=== PATIENT | female | born 1990 | race Caucasian/White ===

== ENCOUNTER 2016-05-20 15:02 | Emergency (ER) | payer OTHER ==
[2016-05-20 15:09] VITALS: TEMP 98.2
[2016-05-20] MEDS ORDERED: SODIUM CHLORIDE 0.9% 1,000 ML IV STA (15:39)
--- NOTE | 2016-05-20 16:15 | ED ---
Abdominal Pain HPI - General Chief Complaint: Abdominal Pain Stated Complaint: lower abdominal pain Time Seen by Provider: 05/20/16 15:33 Source: patient, RN notes reviewed Mode of arrival: ambulatory Limitations: no limitations - History of Present Illness Initial Comments: 25-year-old female presents to the emergency Department chief complaint abdominal pain. Patient states she's had this lower pelvic type abdominal pain for the last week or so. Patient gives herself she moves or touches. Patient states she hasn't had any fever chills that she denies any nausea vomiting change in bowel or bladder habits. Patient states that she was concerned due to the continued pain so she thought that she should be evaluated. Patient denies any cough cold runny nose. Patient states that she is not currently having any other symptoms at this time. Patient denies any recent fever, chills , shortness of breath, chest pain, back pain, nausea vomiting, numbness or tingling, dysuria or hematuria, constipation or diarrhea, headaches or visual changes, or any other current symptoms. - Related Data Previous Rx's Medication Instructions Recorded Ciprofloxacin HCl [Cipro] 500 mg PO Q12HR #14 tablet 05/20/16 Phenazopyridine [Pyridium] 100 mg PO TID #9 tablet 05/20/16 Allergies Allergy/AdvReac Type Severity Reaction Status Date / Time No Known Allergies Allergy Verified 05/20/16 15:41 Review of Systems ROS Statement: Those systems with pertinent positive or pertinent negative responses have been documented in the HPI. ROS Other: All systems not noted in ROS Statement are negative. Past Medical History Past Medical History: No Reported History Additional Past Medical History / Comment(s): blood clotting disorder MTHFR, anticardiolipid antibody syndrome History of Any Multi-Drug Resistant Organisms: None Reported Past Surgical History: No Surgical Hx Reported Past Psychological History: No Psychological Hx Reported Smoking Status: Current every day smoker Past Alcohol Use History: None Reported Past Drug Use History: None Reported General Exam - General Exam Comments Initial Comments: General: The patient is awake and alert, in no distress, and does not appear acutely ill. Eye: Pupils are equal, round and reactive to light, extra-ocular movements are intact; there is normal conjunctiva bilaterally. No signs of icterus. Ears, nose, mouth and throat: There are moist mucous membranes and no oral lesions. Neck: The neck is supple, there is no tenderness. Cardiovascular: There is a regular rate and rhythm. No murmur, rub or gallop is appreciated. Respiratory: Lungs are clear to auscultation, respirations are non-labored, breath sounds are equal. No wheezes, stridor, rales, or rhonchi. Gastrointestinal: Soft, non-distended, minimal tenderness to palpation in the suprapubic area of the abdomen without masses or organomegaly noted. There is no rebound or guarding present. No CVA tenderness. Bowel sounds are unremarkable. Back: There is no tenderness to palpation in the midline. There is no obvious deformity. No rashes noted. Musculoskeletal: Normal ROM, no tenderness, There is no pedal edema. There is no calf tenderness or swelling. Sensation intact. Pulses equal bilaterally 2+. Neurological: CN II-XII intact, There are no obvious motor or sensory deficits. Coordination appears grossly intact. Speech is normal. Skin: Skin is warm and dry and no rashes or lesions are noted. Psychiatric: Cooperative, appropriate mood & affect, normal judgment. Limitations: no limitations Course Vital Signs 05/20/16 15:07 Temperature 98.2 F Pulse Rate 90 Respiratory 20 Rate Blood Pressure 122/76 O2 Sat by Pulse 99 Oximetry Medical Decision Making - Medical Decision Making 25-year-old female presents emergency Department chief complaint abdominal pain. At this time patient's laboratory is reviewed. Patient does appear to have a UTI. At this time we will start the patient on Cipro for home. We discussed return for hours and follow-up. We discussed all patient's and family 's questions. She stated that she understood she is tender in the plan all cushions of answered. She will be discharged home. - Lab Data Result diagrams: 05/20/16 16:00 05/20/16 16:00 Lab Results 05/20/16 05/20/16 05/20/16 Range/Units 16:00 16:00 16:00 WBC 7.5 (3.8-10.6) k/uL RBC 5.42 H (3.80-5.40) m/uL Hgb 13.9 (11.4-16.0) gm/dL Hct 42.8 (34.0-46.0) % MCV 79.0 L (80.0-100.0) fL MCH 25.5 (25.0-35.0) pg MCHC 32.3 (31.0-37.0) g/dL RDW 17.8 H (11.5-15.5) % Plt Count 195 (150-450) k/uL Neutrophils % 33 % Lymphocytes % 53 % Monocytes % 6 % Eosinophils % 1 % Basophils % 1 % Neutrophils # 2.5 (1.3-7.7) k/uL Lymphocytes # 4.0 (1.0-4.8) k/uL Monocytes # 0.5 (0-1.0) k/uL Eosinophils # 0.1 (0-0.7) k/uL Basophils # 0.1 (0-0.2) k/uL Anisocytosis Slight Microcytosis Slight Sodium 143 (137-145) mmol/L Potassium 3.9 (3.5-5.1) mmol/L Chloride 105 (98-107) mmol/L Carbon Dioxide 26 (22-30) mmol/L Anion Gap 12 mmol/L BUN 16 (7-17) mg/dL Creatinine 0.74 (0.52-1.04) mg/dL Est GFR (MDRD) Af Amer >60 (>60 ml/min/1.73 sqM) Est GFR (MDRD) Non-Af >60 (>60 ml/min/1.73 sqM) Glucose 82 (74-99) mg/dL Calcium 9.3 (8.4-10.2) mg/dL Total Bilirubin 0.6 (0.2-1.3) mg/dL AST 37 H (14-36) U/L ALT 71 H (9-52) U/L Alkaline Phosphatase 80 (38-126) U/L Total Protein 7.9 (6.3-8.2) g/dL Albumin 4.4 (3.5-5.0) g/dL Urine Color Urine Appearance (Clear) Urine pH (5.0-8.0) Ur Specific [place] (1.001-1.035) Urine Protein (Negative) Urine Glucose (UA) (Negative) Urine Ketones (Negative) Urine Blood (Negative) Urine Nitrate (Negative) Urine Bilirubin (Negative) Urine Urobilinogen (<2.0) mg/dL Ur Leukocyte Esterase (Negative) Urine RBC (0-5) /hpf Urine WBC (0-5) /hpf Ur Squamous Epith Cells (0-4) /hpf Amorphous Sediment (None) /hpf Urine Bacteria (None) /hpf Urine Mucus (None) /hpf Urine HCG, Qual Not Detected (Not Detectd) 05/20/16 Range/Units 16:00 WBC (3.8-10.6) k/uL RBC (3.80-5.40) m/uL Hgb (11.4-16.0) gm/dL Hct (34.0-46.0) % MCV (80.0-100.0) fL MCH (25.0-35.0) pg MCHC (31.0-37.0) g/dL RDW (11.5-15.5) % Plt Count (150-450) k/uL Neutrophils % % Lymphocytes % % Monocytes % % Eosinophils % % Basophils % % Neutrophils # (1.3-7.7) k/uL Lymphocytes # (1.0-4.8) k/uL Monocytes # (0-1.0) k/uL Eosinophils # (0-0.7) k/uL Basophils # (0-0.2) k/uL Anisocytosis Microcytosis Sodium (137-145) mmol/L Potassium (3.5-5.1) mmol/L Chloride (98-107) mmol/L Carbon Dioxide (22-30) mmol/L Anion Gap mmol/L BUN (7-17) mg/dL Creatinine (0.52-1.04) mg/dL Est GFR (MDRD) Af Amer (>60 ml/min/1.73 sqM) Est GFR (MDRD) Non-Af (>60 ml/min/1.73 sqM) Glucose (74-99) mg/dL Calcium (8.4-10.2) mg/dL Total Bilirubin (0.2-1.3) mg/dL AST (14-36) U/L ALT (9-52) U/L Alkaline Phosphatase (38-126) U/L Total Protein (6.3-8.2) g/dL Albumin (3.5-5.0) g/dL Urine Color Yellow Urine Appearance Cloudy H (Clear) Urine pH 5.5 (5.0-8.0) Ur Specific [place] 1.021 (1.001-1.035) Urine Protein Trace H (Negative) Urine Glucose (UA) Negative (Negative) Urine Ketones Negative (Negative) Urine Blood Negative (Negative) Urine Nitrate Negative (Negative) Urine Bilirubin Negative (Negative) Urine Urobilinogen <2.0 (<2.0) mg/dL Ur Leukocyte Esterase Large H (Negative) Urine RBC 4 (0-5) /hpf Urine WBC 117 H (0-5) /hpf Ur Squamous Epith Cells 27 H (0-4) /hpf Amorphous Sediment Occasional H (None) /hpf Urine Bacteria Few H (None) /hpf Urine Mucus Rare H (None) /hpf Urine HCG, Qual (Not Detectd) - Radiology Data Radiology results: report reviewed, image reviewed Disposition Clinical Impression: UTI (urinary tract infection) Disposition: HOME SELF-CARE Condition: Stable Instructions: Urinary Tract Infection in Women (ED) Additional Instructions: Please use medication as discussed. Please follow up with family doctor if symptoms have not improved over the next two days. Please return to the emergency room if your symptoms increase or worsen or for any other concerns. Prescriptions: Ciprofloxacin HCl [Cipro] 500 mg PO Q12HR #14 tablet Phenazopyridine [Pyridium] 100 mg PO TID #9 tablet Referrals: None,Stated [Primary Care Provider] - 1-2 days Ashley Johnson MD [STAFF PHYSICIAN] - 1-2 days Time of Disposition: 16:53
[2016-05-20 16:19] LABS: Anisocytosis Slight; Aty Lym Flag Slight; Basophils # (A) 0.1 k/uL (0-0.2); Basophils % (A) 1 %; CH 25.7; CHCM 32.7; Eosinophils # (A) 0.1 k/uL (0-0.7); Eosinophils % (A) 1 %; HCT 42.8 % (34.0-46.0); HDW 3.21; HGB 13.9 gm/dL (11.4-16.0); Luc # (Auto) 0.47; Luc % (Auto) 6; Lymphocytes % (A) 53 %; MCH 25.5 pg (25.0-35.0); MCHC 32.3 g/dL (31.0-37.0); Mean Platelet Volume 8.1; Microcytosis Slight; Monocytes # (A) 0.5 k/uL (0-1.0); Monocytes % (A) 6 %; Neutrophils # (A) 2.5 k/uL (1.3-7.7); Neutrophils % (A) 33 %; RBC 5.42 m/uL (3.80-5.40); RDW 17.8 % (11.5-15.5); WBC 7.5 k/uL (3.8-10.6); WBC (Perox) 7.52
[2016-05-20 16:27] LABS: ALT 71 U/L (9-52); AST 37 U/L (14-36); Alkaline Phosphatase 80 U/L (38-126); Anion Gap 12 mmol/L; Blood Urea Nitrogen 16 mg/dL (7-17); Calcium 9.3 mg/dL (8.4-10.2); Carbon Dioxide 26 mmol/L (22-30); Chloride 105 mmol/L (98-107); Glucose 82 mg/dL (74-99); Non-African American GFR(MDRD) >60 (>60 ml/min/1.73 sqM); Potassium 3.9 mmol/L (3.5-5.1); Sodium 143 mmol/L (137-145); Total Bilirubin 0.6 mg/dL (0.2-1.3); Total Protein 7.9 g/dL (6.3-8.2)
[2016-05-20 16:34] LABS: Amorphous Sediment,Urine Occasional /hpf; Appearance,Urine Cloudy (Clear); Bacteria,Urine Few /hpf; Bilirubin,Urine Negative (Negative); Glucose,Urine (UA) Negative (Negative); Ketones,Urine Negative (Negative); Leukocyte Esterase,Urine Large (Negative); Mucus,Urine Rare /hpf; Nitrite,Urine Negative (Negative); PH, Urine 5.5 (5.0-8.0); Protein,Urine Trace (Negative); RBC,Urine 4 /hpf (0-5); Specific Gravity,Urine 1.021 (1.001-1.035); Squamous Epithelial Cell,Urine 27 /hpf (0-4); UA Billing (MACRO vs. MICRO) MICRO; Urobilinogen,Urine <2.0 mg/dL (<2.0); WBC,Urine 117 /hpf (0-5)
--- NOTE | 2016-05-20 16:39 | XR ---
EXAMINATION TYPE: XR abdomen 2V DATE OF EXAM: 05/20/2016 4:35 PM COMPARISON: NONE HISTORY: Pain TECHNIQUE: Single supine KUB image of the abdomen is obtained FINDINGS: Small bowel demonstrates no evidence for dilatation or air fluid levels. Gas and fecal material is seen in non-distended colon. No convincing evidence for pneumoperitoneum. No unusual calcifications. The lung bases are clear. The osseous structures are intact. IMPRESSION: 1. Overall nonobstructive bowel gas pattern.
[2016-05-20 17:09] VITALS: BP 104/67; PULSE 75; RESP 16
== END 2016-05-20 17:28 | disposition home or self-care (01) ==
LOC: EC 15:02
DX: N39.0 Urinary tract infection, site not specified (principal); F17.200 Nicotine dependence, unspecified, uncomplicated
CPT/HCPCS: 36415; 74020; 80053; 81001; 81025; 85025; 96360; 99284

== ENCOUNTER 2016-11-08 11:36 | Emergency (ER) | payer OTHER ==
[2016-11-08 11:43] VITALS: BP 118/71; PULSE 90; RESP 17; TEMP 97.9
--- NOTE | 2016-11-08 11:59 | ED ---
Skin/Abscess/FB HPI - General Chief complaint: Skin/Abscess/Foreign Body Stated complaint: Insect bite rt foot Time Seen by Provider: 11/08/16 11:51 Source: patient Mode of arrival: ambulatory Limitations: no limitations - History of Present Illness Initial comments: 26-year-old Female patient presents to emergency department today for evaluation of an insect bite to top of her left foot. Patient states she was bit 2 days ago. Patient states that she was scratching and it opened and was bleeding. Patient states when she woke today the area was more red and looked infected. Patient states that she is having some pain to the top of the foot as well. Patient denies any fever, chills, headache, neck pain, back pain, abdominal pain, nausea, vomiting, rash, difficulties with urination or bowel movements. Patient is 27 weeks she denies any abdominal cramping, lower back pain, vaginal bleeding or discharge. She also denies any hematuria, dysuria, urinary frequency or urgency. - Related Data Previous Rx's Medication Instructions Recorded Ciprofloxacin HCl [Cipro] 500 mg PO Q12HR #14 tablet 05/20/16 Phenazopyridine [Pyridium] 100 mg PO TID #9 tablet 05/20/16 Cephalexin [Keflex] 500 mg PO Q8HR #30 cap 11/08/16 Allergies Allergy/AdvReac Type Severity Reaction Status Date / Time No Known Allergies Allergy Verified 11/08/16 11:43 Review of Systems ROS Statement: Those systems with pertinent positive or pertinent negative responses have been documented in the HPI. ROS Other: All systems not noted in ROS Statement are negative. Past Medical History Past Medical History: No Reported History Additional Past Medical History / Comment(s): blood clotting disorder MTHFR, anticardiolipid antibody syndrome History of Any Multi-Drug Resistant Organisms: None Reported Past Surgical History: No Surgical Hx Reported Past Psychological History: No Psychological Hx Reported Smoking Status: Current every day smoker Past Alcohol Use History: None Reported Past Drug Use History: None Reported General Exam Limitations: no limitations General appearance: alert, in no apparent distress Eye exam: Present: normal appearance, PERRL, EOMI. Absent: scleral icterus, conjunctival injection, periorbital swelling ENT exam: Present: normal exam, mucous membranes moist Neck exam: Present: normal inspection. Absent: tenderness, meningismus, lymphadenopathy Respiratory exam: Present: normal lung sounds bilaterally. Absent: respiratory distress, wheezes, rales, rhonchi, stridor Cardiovascular Exam: Present: regular rate, normal rhythm, normal heart sounds. Absent: systolic murmur, diastolic murmur, rubs, gallop, clicks Extremities exam: Present: normal inspection, full ROM, normal capillary refill , other (Lesion to the dorsal aspect of the left foot, central scabbed lesion with surrounding erythema. No swelling. Otherwise skin is pink, warm, and dry. Cap refills less than 3 seconds. Full range of motion without limitation or pain.). Absent: tenderness, pedal edema, joint swelling, calf tenderness Neurological exam: Present: alert, oriented X3, CN II-XII intact Psychiatric exam: Present: normal affect, normal mood Skin exam: Present: warm, dry, intact, normal color. Absent: rash Course Vital Signs 11/08/16 11:39 Temperature 97.9 F Pulse Rate 90 Respiratory 17 Rate Blood Pressure 118/71 O2 Sat by Pulse 99 Oximetry Medical Decision Making - Medical Decision Making 26-year-old female patient presented for evaluation of lesion possible insect bite to the dorsal aspect of her left foot. Physical exam did show a centralized lesion with small amount of purulent drainage, with surrounding erythema. Patient will be placed on Keflex and instructed to follow-up with her primary care physician in one to 2 days for recheck. Patient instructed to return immediately for any new, worsening, or concerning symptoms. Patient verbalizes understanding and agreement with this plan. Disposition Clinical Impression: Insect bite, Cellulitis Disposition: HOME SELF-CARE Condition: Good Instructions: Cellulitis (ED) Additional Instructions: Keep area clean and dry. Apply topical antibiotic ointment. Completely antibiotic prescription and full. Return for any new, worsening, or concerning symptoms. Follow up with primary care physician for recheck in 1-2 days. Prescriptions: Cephalexin [Keflex] 500 mg PO Q8HR #30 cap Referrals: None,Stated [Primary Care Provider] - 1-2 days Time of Disposition: 11:59
== END 2016-11-08 12:12 | disposition home or self-care (01) ==
LOC: EC 11:36
DX: O9A.212 Injury, poisoning and certain other consequences of external causes complicating pregnancy, second trimester (principal); S90.862A Insect bite (nonvenomous), left foot, initial encounter; O99.712 Diseases of the skin and subcutaneous tissue complicating pregnancy, second trimester; L03.116 Cellulitis of left lower limb; O99.332 Smoking (tobacco) complicating pregnancy, second trimester; F17.200 Nicotine dependence, unspecified, uncomplicated; Z3A.27 27 weeks gestation of pregnancy; W57.XXXA Bitten or stung by nonvenomous insect and other nonvenomous arthropods, initial encounter
CPT/HCPCS: 99282

== ENCOUNTER 2018-08-22 21:42 | Emergency (ER) | payer OTHER ==
[2018-08-22 21:56] VITALS: RESP 20
--- NOTE | 2018-08-22 22:27 | ED ---
Chest Pain HPI - General Chief Complaint: Chest Pain Stated Complaint: Light headed Time Seen by Provider: 08/22/18 22:00 Source: patient, family Mode of arrival: ambulatory Limitations: no limitations - History of Present Illness Initial Comments: This patient is 28-year-old woman who presents to be evaluated for chest pain that is been going on intermittently today. The patient states that it is currently located in left chest though she states it has been seeming to go from side to side. When it started earlier in the afternoon was on the right side, then went to the left. She states it is aching. She has not noted worsening or relieving factors. She relates that she did recently have seizure, and then was told that when she followed up in relation to that she had an abnormal EKG and they are setting up further neurology and possibly cardiology consultation. The patient denies anginal symptoms, no dyspnea, diaphoresis, nausea or vomiting, lightheadedness or palpitations. MD Complaint: chest pain -: hour(s) Onset: during rest Pain Location: left chest, right chest Pain Radiation: none Severity: moderate Quality: aching Consistency: intermittent Improves With: nothing Worsens With: nothing Treatments Prior to Arrival: none - Related Data Home Medications Medication Instructions Recorded Confirmed No Known Home Medications 08/22/18 08/22/18 Allergies Allergy/AdvReac Type Severity Reaction Status Date / Time No Known Allergies Allergy Verified 08/22/18 22:50 Review of Systems ROS Statement: Those systems with pertinent positive or pertinent negative responses have been documented in the HPI. ROS Other: All systems not noted in ROS Statement are negative. Constitutional: Denies: fever, chills, weakness Respiratory: Denies: cough, dyspnea Cardiovascular: Reports: chest pain. Denies: palpitations, dyspnea on exertion, orthopnea, edema, syncope Gastrointestinal: Denies: abdominal pain, nausea, vomiting Genitourinary: Denies: dysuria, frequency, hematuria, discharge Musculoskeletal: Denies: back pain Skin: Denies: rash Neurological: Denies: headache, weakness, numbness EKG Findings - EKG Results: EKG: interpreted by LEÓN PUGA, sinus rhythm (Rate 82 bpm), normal axis, normal QRS, normal ST/T - MD, Pacemaker, Normal: Normal tracing: normal tracing Past Medical History Past Medical History: Seizure Disorder Additional Past Medical History / Comment(s): gestational anemia, and MTHFR, anticardiolipin antibody History of Any Multi-Drug Resistant Organisms: None Reported Past Surgical History: No Surgical Hx Reported Past Anesthesia/Blood Transfusion Reactions: No Reported Reaction Past Psychological History: No Psychological Hx Reported Smoking Status: Current every day smoker Past Alcohol Use History: Occasional Past Drug Use History: Marijuana - Past Family History Mother Family Medical History: Hypertension General Exam Limitations: no limitations General appearance: alert, in no apparent distress Head exam: Present: atraumatic, normocephalic Eye exam: Present: normal appearance. Absent: scleral icterus, conjunctival injection ENT exam: Present: normal oropharynx Neck exam: Present: normal inspection, full ROM Respiratory exam: Present: normal lung sounds bilaterally. Absent: respiratory distress, wheezes, rales, rhonchi, stridor Cardiovascular Exam: Present: regular rate, normal rhythm, normal heart sounds. Absent: systolic murmur, diastolic murmur, rubs, gallop GI/Abdominal exam: Present: soft. Absent: distended, tenderness, guarding, rebound, rigid, mass Extremities exam: Present: normal inspection, normal capillary refill. Absent: pedal edema, calf tenderness Back exam: Present: normal inspection. Absent: CVA tenderness (R), CVA tenderness (L) Neurological exam: Present: alert Skin exam: Present: warm, dry, intact, normal color. Absent: rash Course Vital Signs 08/22/18 21:52 Temperature 98.6 F Pulse Rate 117 H Respiratory 20 Rate Blood Pressure 152/98 O2 Sat by Pulse 100 Oximetry Chest Pain [facility] Patient is 28-year-old with chest pain going on since afternoon with negative workup. Patient found to have some white cells in urine and further discussion reveals patient not having any symptoms of urinary tract infection. She does not believe that she does currently have infection. Therefore the urine will be sent for culture to guide further treatment, she is declining antibiotics at the moment. Further care and follow-up with the patient to have EEG related to her seizure. Also discussed further follow-up related chest pain. Turn parameters discussed Disposition Clinical Impression: Chest pain Disposition: HOME SELF-CARE Condition: Good Instructions (If sedation given, give patient instructions): Chest Pain (ED) Is patient prescribed a controlled substance at d/c from ED?: No Referrals: Nain Ruelas DO [Primary Care Provider] - 1-2 days
[2018-08-22 22:28] LABS: Basophils % (A) 0 %; Eosinophils # (A) 0.3 k/uL (0-0.7); Eosinophils % (A) 2 %; HCT 42.6 % (34.0-46.0); HGB 14.3 gm/dL (11.4-16.0); Lymphocytes # (A) 4.7 k/uL (1.0-4.8); Lymphocytes % (A) 44 %; MCH 27.6 pg (25.0-35.0); MCHC 33.5 g/dL (31.0-37.0); MCV 82.5 fL (80.0-100.0); Mean Platelet Volume 9.2; Monocytes # (A) 0.7 k/uL (0-1.0); Monocytes % (A) 7 %; Neutrophils # (A) 4.6 k/uL (1.3-7.7); Neutrophils % (A) 44 %; Platelet Count 194 k/uL (150-450); RBC 5.17 m/uL (3.80-5.40); RDW 14.2 % (11.5-15.5); WBC 10.5 k/uL (3.8-10.6)
[2018-08-22 22:35] LABS: ALT 14 U/L (9-52); AST 23 U/L (14-36); Albumin 4.6 g/dL (3.5-5.0); Alkaline Phosphatase 43 U/L (38-126); Amylase 62 U/L (30-110); Anion Gap 9 mmol/L; Blood Urea Nitrogen 16 mg/dL (7-17); Calcium 9.4 mg/dL (8.4-10.2); Carbon Dioxide 23 mmol/L (22-30); Chloride 107 mmol/L (98-107); Glucose 84 mg/dL (74-99); Lipase 64 U/L (23-300); Magnesium 1.7 mg/dL (1.6-2.3); Potassium 4.1 mmol/L (3.5-5.1); Sodium 139 mmol/L (137-145); Total Bilirubin 0.3 mg/dL (0.2-1.3); Total Protein 7.3 g/dL (6.3-8.2)
[2018-08-22 22:47] LABS: D-Dimer <0.17 mg/L FEU (<0.60); Partial Thromboplastin Time 27.2 sec (22.0-30.0); Prothrombin Time 10.3 sec (9.0-12.0)
[2018-08-22 22:53] LABS: Appearance,Urine Cloudy (Clear); Bilirubin,Urine Negative (Negative); Blood,Urine Negative (Negative); Color,Urine Yellow; Glucose,Urine (UA) Negative (Negative); Ketones,Urine Negative (Negative); Leukocyte Esterase,Urine Large (Negative); Mucus,Urine Rare /hpf; Nitrite,Urine Negative (Negative); PH, Urine 5.5 (5.0-8.0); Protein,Urine Trace (Negative); RBC,Urine 7 /hpf (0-5); Specific Gravity,Urine 1.035 (1.001-1.035); Squamous Epithelial Cell,Urine 21 /hpf (0-4); Urobilinogen,Urine <2.0 mg/dL (<2.0); WBC,Urine 33 /hpf (0-5)
--- NOTE | 2018-08-22 23:15 | XR ---
EXAM: XR Chest, 2 Views CLINICAL HISTORY: Chest Pain TECHNIQUE: Frontal and lateral views of the chest. COMPARISON: No relevant prior studies available. FINDINGS: Lungs: Unremarkable. No consolidation. Pleural space: Unremarkable. No pneumothorax. Heart: Unremarkable. No cardiomegaly. Mediastinum: Unremarkable. Bones/joints: Unremarkable. IMPRESSION: Normal chest x-rays.
[2018-08-22] MEDS ORDERED: KETOROLAC 30 MG/ML 1 ML VIAL IVP STA (23:24)
[2018-08-22] MEDS ORDERED: MAG HYDROX/AL HYDROX/SIMETH 30 ML, HYOSCYAMINE ELIXIR 10 ML, CIMETIDINE HCL 300 MG, LID... PO STA ×4 (23:24)
[2018-08-23 00:16] VITALS: BP 140/72; PULSE 70; TEMP 98.5
== END 2018-08-23 00:16 | disposition home or self-care (01) ==
LOC: EC 21:42
DX: R07.9 Chest pain, unspecified (principal); R42 Dizziness and giddiness; F17.200 Nicotine dependence, unspecified, uncomplicated
CPT/HCPCS: 36415; 93005; 85379; 80053; 82150; 83690; 83735; 84484; 85025; 85610; 85730; 81001; 81025; 87086; 71046; 99285; 96374; J1885

== ENCOUNTER → 2018-08-27 | Outpatient (CLI) | payer OTHER ==
--- NOTE | 2018-08-28 13:27 | EEG ---
ELECTROENCEPHALOGRAM REPORT PROCEDURE DATE: 08/27/2018 ELECTROENCEPHALOGRAM (EEG) REPORT: TECHNIQUE: A routine 18 channel EEG was performed with video using the 10-20 international placement system. HISTORY: New onset seizure about 2 weeks ago. CURRENT MEDICATIONS: Tylenol. STUDY DURATION: 24 minutes. FINDINGS: BACKGROUND: The background activity consisted of 9 to 10 hertz rhythmic waveforms symmetrically distributed over both posterior quadrants. ACTIVATION: Hyperventilation: Not performed. Photic stimulation: Symmetric driving seen. Sleep: Drowsy. ABNORMALITIES: None. IMPRESSION: Normal EEG. No epileptiform activity was present. No seizures were recorded. MMODL / IJN: [id number] / [facility]
== END | disposition home or self-care (01) ==
LOC: NEUROMAIN 10:44
PROVIDERS: ATTEND Family Medicine
DX: Z09 Encounter for follow-up examination after completed treatment for conditions other than malignant neoplasm (principal); Z86.69 Personal history of other diseases of the nervous system and sense organs
CPT/HCPCS: 95816

== ENCOUNTER → 2018-08-28 | Outpatient (CLI) | payer OTHER ==
--- NOTE | 2018-08-28 15:27 | EST ---
EXERCISE STRESS AGE: 28 SEX: F HT: 5'7" WT: 150 PROTOCOL: Jeff Stress Test STAGE: III DURATION OF EXERCISE: 8:00 HEART RATE REST: 85 BLOOD PRESSURE REST: 129/84 MAXIMUM HEART RATE ACHIEVED: 171 MAXIMUM BLOOD PRESSURE: 162/87 85% MPHR: 164 100% MPHR: 193 METS: 9.7 INDICATIONS: Chest pain/syncope. CLINICAL INFORMATION: Pretesting physical examination showed a heart rate of 85, pressure is 129/84 mmHg. Baseline EKG showed sinus mechanism. The patient exercised on the Jeff protocol for a total of 8 minutes and achieved 9.7 METS with max heart rate was 171, which is about 89% of maximum predicted heart rate. Maximum blood pressure was 162/87 mmHg. Clinically, the patient developed chest discomfort in response to exercise. The EKG did not show any significant ST or T-wave abnormalities concerning for ischemia. CONCLUSION: 1. Good exercise tolerance. 2. Chest discomfort in response to exercise. 3. Normal EKG in response to exercise. MMODL / IJN: [id number] /
== END ==
LOC: RADNMMAIN 10:40
PROVIDERS: ATTEND Family Medicine
DX: R55 Syncope and collapse (principal)
CPT/HCPCS: 93017

== ENCOUNTER → 2018-09-01 | Outpatient (CLI) | payer OTHER ==
--- NOTE | 2018-10-06 13:12 | EM ---
EVENT MONITOR REPORT This is a 28-year-old female being evaluated for symptoms of syncope and collapse. 30 day event monitor mostly shows episodes of severe sinus rhythm, sinus tachycardia, occasional APCs and occasional PVCs. No sustained arrhythmias are noted. FINAL IMPRESSION: #1. Sinus rhythm. #2. sinus tachycardia. #3. APCs. #4. PVCs. #5. No sustained cardiac arrhythmias. #6. Patient complained of dizzy and lightheaded correlating with sinus rhythm and sinus tachycardia. MTDD
== END | disposition home or self-care (01) ==
LOC: RADECHMAIN 11:53
PROVIDERS: ATTEND Family Medicine
DX: I49.1 Atrial premature depolarization (principal); I49.3 Ventricular premature depolarization; R00.0 Tachycardia, unspecified
CPT/HCPCS: 93270

== ENCOUNTER → 2018-09-15 | Outpatient (CLI) | payer OTHER ==
--- NOTE | 2018-09-16 01:15 | MR ---
EXAMINATION TYPE: MR brain wo con DATE OF EXAM: 09/15/2018 COMPARISON: None HISTORY: Family hx of aneurysm, seizure Standard multiplanar, multisequence MRI departmental protocol Multiplanar, multisequence images of the brain were acquired. Diffusion weighted imaging was performe d. FINDINGS: Ventricles and sulci appear normal. There is no mass effect nor midline shift. There is no sign of intracranial hemorrhage. Brainstem is intact. Corpus callosum appears normal. Sella turcica a ppears normal. There is no evidence of a posterior fossa mass. There is no evidence of cortical infar ct. There is no evidence of cerebral edema. IMPRESSION: Negative MR scan of the brain.
--- NOTE | 2018-09-16 01:20 | MR ---
EXAMINATION TYPE: MR angio head wo con DATE OF EXAM: 09/15/2018 COMPARISON: None HISTORY: Family hx of aneurysm, seizure TECHNIQUE: Time of flight images focusing on the [place] were performed without contrast. FINDINGS: There is arterial flow demonstrated in the anterior middle and posterior cerebral arteries. There is arterial flow in the vertebrobasilar artery system. Vertebral arteries are fairly symmetric . There is no mass effect. There is no evidence of hemodynamic stenosis. There is no sign of aneurysm o r neovascularity. IMPRESSION: Normal MR angiogram of the brain.
== END | disposition home or self-care (01) ==
LOC: RADMRIMAIN 09:30
PROVIDERS: ATTEND Psychiatry & Neurology Neurology
DX: G40.909 Epilepsy, unspecified, not intractable, without status epilepticus (principal)
CPT/HCPCS: 70544; 70551

== ENCOUNTER 2018-09-22 07:46 | Day surgery (SDC) | payer OTHER ==
[2018-09-18 17:31] VITALS: BMI 23.5
[~2018-09-22 07:46] MED LIST: SODIUM CHLORIDE 0.9% 1,000 ML IV SCH
[2018-09-22 08:29] VITALS: BP 114/70; PULSE 59; RESP 20
[2018-09-22] MEDS ORDERED: SODIUM CHLORIDE 0.9% 500 ML 500 ML IV ONE (09:15)
[2018-09-22] MEDS ORDERED: NITROGLYCERIN SL TABS 0.4 MG TAB SUBLINGUAL ONE ×2 (10:49→11:13)
[2018-09-22] MEDS ORDERED: IV FLUID CONTINUATION 350 ML IV ONE (10:57)
[2018-09-22] MEDS ORDERED: NITROGLYCERIN SL TABS 0.4 MG TAB SUBLINGUAL STA (11:13)
--- NOTE | 2018-09-22 14:14 | P.PCN ---
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 She had episodes of lightheadedness but no bradycardia arrhythmias no hypertension She was laid supine Thereafter sublingual nitroglycerin was administered and after about 5 minutes she was tilted upright once again for another 20 minutes Once again no change in heart rate and blood pressure no syncope noted and she was laid supine at the end of the procedure Impression Normal 12-lead ECG at baseline Normal head up tilt with and without provocation Suggest I discussed the results with the patient and in view of her symptoms I would recommend a diagnostic EP study I will review her 30 day event monitor from the hospital and if needed, if the EP study is unrevealing then repeat 30 day monitoring will be ordered
== END 2018-09-22 12:30 | disposition home or self-care (01) ==
LOC: CATHEP 07:46
PROVIDERS: ATTEND Internal Medicine Clinical Cardiac Electrophysiology
DX: R55 Syncope and collapse (principal); R56.9 Unspecified convulsions; D68.61 Antiphospholipid syndrome; F17.210 Nicotine dependence, cigarettes, uncomplicated
CPT/HCPCS: 93660

== ENCOUNTER 2019-04-09 13:39 | Emergency (ER) | payer OTHER ==
[2019-04-09 14:07] VITALS: RESP 18; TEMP 98.2
[2019-04-09] MEDS ORDERED: ACET/COD 300 MG/30 MG STARTER PACK 6 TAB BTL PO STA (14:43)
[2019-04-09] MEDS ORDERED: KETOROLAC 60 MG/2 ML VIAL IM STA (14:43)
--- NOTE | 2019-04-09 14:43 | ED ---
ENT HPI - General Chief complaint: Dental/Oral Stated complaint: left sided mouth pain Time Seen by Provider: 04/09/19 14:10 Source: patient Mode of arrival: ambulatory Limitations: no limitations - History of Present Illness Initial comments: Patient is a 28-year-old female presenting to emergency Department with complaints of dental pain. Patient states she had a tooth in her upper right mouth approximately 2 weeks ago and was put on penicillin. Patient completed that course of penicillin and states her pain and symptoms returned earlier this week and she went to her PCP who again put her on penicillin. Patient is currently on day 4 of a second round and states her pain is not improving. Patient does not have a follow-up appointment with a dentist as of yet. Patient denies fever, chills, nausea, vomiting. She has no other complaints at this time. Upon arrival to the ER, her vital signs are stable. - Related Data Home Medications Medication Instructions Recorded Confirmed Naproxen Sodium [Aleve] 440 mg PO BID PRN 09/18/18 09/18/18 Previous Rx's Medication Instructions Recorded Clindamycin HCl 300 mg PO Q6HR 10 Days #40 cap 04/09/19 Allergies Allergy/AdvReac Type Severity Reaction Status Date / Time No Known Allergies Allergy Verified 09/18/18 17:12 Review of Systems ROS Statement: Those systems with pertinent positive or pertinent negative responses have been documented in the HPI. ROS Other: All systems not noted in ROS Statement are negative. Past Medical History Past Medical History: Blood Disorder, Seizure Disorder Additional Past Medical History / Comment(s): HX PRE-ECLAMPSIA, gestational anemia, and MTHFR, anticardiolipin antibody. HX LOW HR, BLACKS OUT FOR MANY YEARS. CONVULSION 3 WKS AGO; LIGHTHEADED, SHAKY DAYS AFTER. History of Any Multi-Drug Resistant Organisms: None Reported Past Surgical History: No Surgical Hx Reported Past Anesthesia/Blood Transfusion Reactions: No Reported Reaction Additional Past Anesthesia/Blood Transfusion Reaction / Comment(s): NO PREV ANESTHESIA OR TRANSFUSION Past Psychological History: No Psychological Hx Reported Smoking Status: Current every day smoker - Past Family History Mother Family Medical History: Hypertension Brother(s) Additional Family Medical History / Comment(s): BLOOD CLOT IN FOOT YEARS AGO General Exam - General Exam Comments Initial Comments: GENERAL: Well-appearing, well-nourished and in no acute distress. HEAD: Atraumatic, normocephalic. EYES: Pupils equal round and reactive to light, extraocular movements intact, sclera anicteric, conjunctiva are normal. ENT: TMs normal, nares patent, oropharynx clear without exudates. Moist mucous membranes. Multiple dental. Present. There is no abscess seen. There is some mild erythema of the gumline and upper right and upper left sides. NECK: Normal range of motion, supple without lymphadenopathy or JVD. LUNGS: Breath sounds clear to auscultation bilaterally and equal. No wheezes rales or rhonchi. HEART: Regular rate and rhythm without murmurs, rubs or gallops. EXTREMITIES: Normal range of motion, no pitting or edema. No clubbing or cyanosis. NEUROLOGICAL: Normal speech, normal gait. PSYCH: Normal mood, normal affect. SKIN: Warm, Dry, normal turgor, no rashes or lesions noted. Limitations: no limitations Course Vital Signs 04/09/19 04/09/19 14:05 15:20 Temperature 98.2 F Pulse Rate 88 78 Respiratory 18 18 Rate Blood Pressure 130/89 126/79 O2 Sat by Pulse 98 98 Oximetry Medical Decision Making - Medical Decision Making Patient is a 28-year-old female presenting with dental pain x 1 week. Vital signs are stable. There is no abscesses. Patient will be switched from penicillin to clindamycin. Patient needs to follow-up with a dentist TR[facility]. She is in agreement with this plan of care. Return parameters were discussed with the patient she verbalized understanding. Disposition Clinical Impression: Dental abscess, Dental caries, Pain, dental Disposition: HOME SELF-CARE Condition: Stable Instructions (If sedation given, give patient instructions): Dental Abscess (ED) Additional Instructions: Please return to the Emergency Department if symptoms worsen or any other concerns. Take antibiotic as prescribed. Follow-up with dentist TRUM[facility]. Prescriptions: Clindamycin HCl 300 mg PO Q6HR 10 Days #40 cap Is patient prescribed a controlled substance at d/c from ED?: No Referrals: Nain Ruelas DO [Primary Care Provider] - 1-2 days
[2019-04-09 15:21] VITALS: BP 126/79; PULSE 78
== END 2019-04-09 15:20 | disposition home or self-care (01) ==
LOC: EC 13:39
DX: K02.9 Dental caries, unspecified (principal); K04.7 Periapical abscess without sinus; F17.200 Nicotine dependence, unspecified, uncomplicated
CPT/HCPCS: 99282; J1885

== ENCOUNTER 2019-05-18 15:57 | Emergency (ER) | payer OTHER ==
[2019-05-18] MEDS ORDERED: guaiFENesin-DM 600/30MG 1 EACH TAB.ER.12H PO STA (17:34)
[2019-05-18] MEDS ORDERED: KETOROLAC 30 MG/ML 1 ML VIAL IM STA (17:34)
[2019-05-18] MEDS ORDERED: OSELTAMIVIR 75 MG CAP PO STA (17:34)
[2019-05-18] MEDS ORDERED: diphenhydrAMINE 50 MG/ML 1 ML VIAL IM STA (17:34)
[2019-05-18] MEDS ORDERED: ACETAMINOPHEN TAB 500 MG TAB PO STA (17:35)
--- NOTE | 2019-05-18 17:37 | ED ---
URI HPI - General Chief Complaint: Upper Respiratory Infection Stated Complaint: Migraine Time Seen by Provider: 05/18/19 17:23 Source: patient Mode of arrival: ambulatory Limitations: no limitations - History of Present Illness Initial Comments: 28-year-old female patient presents to the emergency department today for evaluation of cough, nasal congestion, sore throat. Patient is also reporting headache since yesterday. Patient states that she has been feverish and chilled. States she has been taking ibuprofen and DayQuil without much relief. Patient states that nothing is helping her headache. She is reporting nausea, no vomiting. She states that she is sensitive to light. She denies any dizziness or weakness. Denies any blurred or double vision. Denies any rash. Denies any neck pain or stiffness. Patient denies any recent rash, shortness breath, chest pain, abdominal pain, diarrhea, constipation, back pain, numbness, tingling, hematuria, dysuria, urinary urgency, urinary frequency, headache, visual changes, or any other complaints. She denies any chance of . - Related Data Home Medications Medication Instructions Recorded Confirmed Naproxen Sodium [Aleve] 440 mg PO BID PRN 09/18/18 09/18/18 Previous Rx's Medication Instructions Recorded Clindamycin HCl 300 mg PO Q6HR 10 Days #40 cap 04/09/19 Oseltamivir [Tamiflu] 75 mg PO Q12HR #10 cap 05/18/19 guaiFENesin-DM 600/30MG [Mucinex 2 each PO Q12HR PRN #20 tab.er.12h 05/18/19 Dm] Allergies Allergy/AdvReac Type Severity Reaction Status Date / Time No Known Allergies Allergy Verified 05/18/19 16:07 Review of Systems ROS Statement: Those systems with pertinent positive or pertinent negative responses have been documented in the HPI. ROS Other: All systems not noted in ROS Statement are negative. Past Medical History Past Medical History: Blood Disorder, Seizure Disorder, Syncope Additional Past Medical History / Comment(s): HX PRE-ECLAMPSIA, gestational anemia, and MTHFR, anticardiolipin antibody. HX LOW HR, BLACKS OUT FOR MANY YEARS. CONVULSION 3 WKS AGO; LIGHTHEADED, SHAKY DAYS AFTER.bradycardia History of Any Multi-Drug Resistant Organisms: None Reported Past Surgical History: No Surgical Hx Reported Past Anesthesia/Blood Transfusion Reactions: No Reported Reaction Additional Past Anesthesia/Blood Transfusion Reaction / Comment(s): NO PREV ANESTHESIA OR TRANSFUSION Past Psychological History: No Psychological Hx Reported Smoking Status: Current every day smoker Past Alcohol Use History: Occasional Past Drug Use History: Marijuana - Past Family History Mother Family Medical History: Hypertension Brother(s) Additional Family Medical History / Comment(s): BLOOD CLOT IN FOOT YEARS AGO General Exam Limitations: no limitations General appearance: alert, in no apparent distress, other (This is a well- developed, well-nourished adult female patient in no acute distress. Vital signs upon presentation are temperature 98.8F, pulse 112, respirations 22, blood pressure 119/77, pulse ox 99% on room air.) Eye exam: Present: normal appearance, PERRL, EOMI. Absent: scleral icterus, conjunctival injection, nystagmus, periorbital swelling ENT exam: Present: mucous membranes moist, TM's normal bilaterally. Absent: normal oropharynx (Pharyngeal erythema) Neck exam: Present: normal inspection, full ROM. Absent: tenderness, meningismus, lymphadenopathy Respiratory exam: Present: normal lung sounds bilaterally. Absent: respiratory distress, wheezes, rales, rhonchi, stridor Cardiovascular Exam: Present: normal rhythm, tachycardia, normal heart sounds. Absent: systolic murmur, diastolic murmur, rubs, gallop, clicks GI/Abdominal exam: Present: soft, normal bowel sounds. Absent: distended, tenderness, guarding, rebound, rigid Neurological exam: Present: alert, oriented X3, CN II-XII intact Psychiatric exam: Present: normal affect, normal mood Skin exam: Present: warm, dry, intact, normal color. Absent: rash Course Vital Signs 05/18/19 05/18/19 05/18/19 16:03 18:03 18:04 Temperature 98.8 F 100.3 F H Pulse Rate 112 H Respiratory 22 22 Rate Blood Pressure 119/77 O2 Sat by Pulse 99 Oximetry Medical Decision Making - Medical Decision Making 28-year-old female patient presented to the emergency department today for evaluation of cough, congestion, headache, fever since yesterday. Physical examination is clear equal lung sounds. Vital signs normal abnormalities. She did test positive for influenza A. We will treat with antipyretics, Toradol, start Tamiflu, give Mucinex for symptom relief. She is instructed to follow-up with her primary care physician for recheck in 1-2 days. Return parameters were discussed in detail. She verbalizes understanding and agrees with this plan. - Lab Data Lab Results 05/18/19 Range/Units 16:05 Influenza Type A RNA Detected H (Not Detectd) Influenza Type B (PCR) Not Detected (Not Detectd) Disposition Clinical Impression: Influenza A, Headache Disposition: HOME SELF-CARE Condition: Good Instructions (If sedation given, give patient instructions): Influenza (ED), Acute Headache (ED) Additional Instructions: Increase fluids. Rest. Take medications as directed. Follow-up through primary care physician for recheck in 1-2 days. Return to the emergency department immediately for any new, worsening, or concerning symptoms. Prescriptions: guaiFENesin-DM 600/30MG [Mucinex Dm] 2 each PO Q12HR PRN #20 tab.er.12h PRN Reason: Cough Oseltamivir [Tamiflu] 75 mg PO Q12HR #10 cap Is patient prescribed a controlled substance at d/c from ED?: No Referrals: Nain Ruelas DO [Primary Care Provider] - 1-2 days Time of Disposition: 17:37
[2019-05-18 18:03] VITALS: TEMP 100.3
[2019-05-18 18:29] VITALS: BP 113/70; PULSE 64; RESP 18
== END 2019-05-18 18:20 | disposition home or self-care (01) ==
LOC: EC 15:57
DX: J10.1 Influenza due to other identified influenza virus with other respiratory manifestations (principal); R00.0 Tachycardia, unspecified; R11.0 Nausea; H53.149 Visual discomfort, unspecified; F17.200 Nicotine dependence, unspecified, uncomplicated; Z82.49 Family history of ischemic heart disease and other diseases of the circulatory system
CPT/HCPCS: 87502; 99284; 96372 ×2; J1200; J1885

== ENCOUNTER → 2019-11-09 | Outpatient (CLI) | payer OTHER | END | disposition home or self-care (01) | LOC: LABWHC1 09:35 | PROVIDERS: ATTEND Family Medicine | DX: Z20.828 Contact with and (suspected) exposure to other viral communicable diseases (principal) | CPT/HCPCS: U0003; C9803 ==

== ENCOUNTER → 2020-02-10 | Outpatient (CLI) | payer OTHER | END | disposition home or self-care (01) | LOC: LABWHC1 13:49 | PROVIDERS: ATTEND Nurse Practitioner Family | DX: Z20.828 Contact with and (suspected) exposure to other viral communicable diseases (principal) | CPT/HCPCS: U0003; C9803 ==

== ENCOUNTER 2020-08-12 09:57 | Emergency (ER) | payer OTHER ==
[2020-08-12 10:01] VITALS: BP 134/84; PULSE 95; RESP 20; TEMP 97.2
[2020-08-12] MEDS ORDERED: KETOROLAC 15 MG/ML 1 ML VIAL IM STA (10:52)
[2020-08-12] MEDS ORDERED: ORPHENADRINE 30 MG/ML 2 ML VIAL IM STA (10:52)
--- NOTE | 2020-08-12 10:59 | ED ---
General Adult HPI - General Chief complaint: Neck Pain/Injury Stated complaint: neck/back injury Time Seen by Provider: 08/12/20 10:12 Source: patient, RN notes reviewed Mode of arrival: ambulatory Limitations: no limitations - History of Present Illness Initial comments: 30-year-old female with a past medical history of asthma, seizure disorder, syncope presents to the emergency room for a chief complaint of back pain. Patient reports yesterday she was jumping on a trampoline when she felt the pain in her upper back. Patient got down from a trampoline and states the pain continued. States it is painful to lie flat and turn. Patient feels like it is spasming.Patient has no other complaints at this time including shortness of breath, chest pain, abdominal pain, nausea or vomiting, headache, or visual changes. - Related Data Home Medications Medication Instructions Recorded Confirmed Naproxen Sodium [Aleve] 440 mg PO BID PRN 09/18/18 09/18/18 Previous Rx's Medication Instructions Recorded Clindamycin HCl 300 mg PO Q6HR 10 Days #40 cap 04/09/19 Oseltamivir [Tamiflu] 75 mg PO Q12HR #10 cap 05/18/19 guaiFENesin-DM 600/30MG [Mucinex 2 each PO Q12HR PRN #20 tab.er.12h 05/18/19 Dm] Cyclobenzaprine [Flexeril] 10 mg PO TID #10 tab 08/12/20 Allergies Allergy/AdvReac Type Severity Reaction Status Date / Time No Known Allergies Allergy Verified 08/12/20 10:01 Review of Systems ROS Statement: Those systems with pertinent positive or pertinent negative responses have been documented in the HPI. ROS Other: All systems not noted in ROS Statement are negative. Past Medical History Past Medical History: Asthma, Blood Disorder, Seizure Disorder, Syncope Additional Past Medical History / Comment(s): HX PRE-ECLAMPSIA, gestational anemia, and MTHFR, anticardiolipin antibody. HX LOW HR, BLACKS OUT FOR MANY YEARS. CONVULSION 3 WKS AGO; LIGHTHEADED, SHAKY DAYS AFTER.bradycardia History of Any Multi-Drug Resistant Organisms: None Reported Past Surgical History: No Surgical Hx Reported Past Anesthesia/Blood Transfusion Reactions: No Reported Reaction Additional Past Anesthesia/Blood Transfusion Reaction / Comment(s): NO PREV ANESTHESIA OR TRANSFUSION Past Psychological History: No Psychological Hx Reported Smoking Status: Current every day smoker Past Alcohol Use History: Occasional Past Drug Use History: Marijuana - Past Family History Mother Family Medical History: Hypertension Brother(s) Additional Family Medical History / Comment(s): BLOOD CLOT IN FOOT YEARS AGO General Exam Limitations: no limitations General appearance: alert, in no apparent distress Head exam: Present: atraumatic Eye exam: Present: normal appearance, PERRL, EOMI. Absent: scleral icterus, conjunctival injection, periorbital swelling ENT exam: Present: normal exam, mucous membranes moist Neck exam: Present: normal inspection. Absent: tenderness (No paraspinal or cervical spine tenderness), meningismus, lymphadenopathy Respiratory exam: Present: normal lung sounds bilaterally. Absent: respiratory distress, wheezes, rales, rhonchi, stridor Cardiovascular Exam: Present: regular rate, normal rhythm, normal heart sounds. Absent: systolic murmur, diastolic murmur, rubs, gallop, clicks GI/Abdominal exam: Present: soft, normal bowel sounds. Absent: distended, tenderness, guarding, rebound, rigid Back exam: Present: paraspinal tenderness (Paraspinal thoracic tenderness.), vertebral tenderness (Patient has thoracic tenderness around T2.) Course Vital Signs 08/12/20 09:59 Temperature 97.2 F L Pulse Rate 95 Respiratory 20 Rate Blood Pressure 134/84 O2 Sat by Pulse 99 Oximetry Medical Decision Making - Medical Decision Making Vitals are stable. Patient is well-appearing. She does have paraspinal tenderness along the thoracic upper back. Mild thoracic spine tenderness. No lower back tenderness. No neck tenderness. X-ray of the thoracic spine shows no acute abnormality. Patient was given Toradol and Norflex. symptoms are consistent with muscle strain and spasm. Patient already has Tylenol 3 at home for pain that she will take. Patient will follow-up with her doctor in one to 2 days. She'll return here for any worsening symptoms. - Lab Data Lab Results 08/12/20 Range/Units 10:51 Urine HCG, Qual Not Detected (Not Detectd) Disposition Clinical Impression: Mechanical back pain Disposition: HOME SELF-CARE Condition: Good Instructions (If sedation given, give patient instructions): Thoracic Back Strain (ED) Additional Instructions: Please take Motrin for pain. If pain is severe take Tylenol 3. Take muscle relaxer as needed but do not take this while driving, working, or operating machinery. Follow up with your doctor. Return to the emergency room for any worsening symptoms. Prescriptions: Cyclobenzaprine [Flexeril] 10 mg PO TID #10 tab Is patient prescribed a controlled substance at d/c from ED?: No Referrals: Nain Ruelas DO [Primary Care Provider] - 1-2 days Time of Disposition: 11:43
--- NOTE | 2020-08-12 11:38 | XR ---
EXAMINATION TYPE: XR thoracic spine complete DATE OF EXAM: 08/12/2020 COMPARISON: NONE HISTORY: Pain TECHNIQUE: 3 views submitted FINDINGS: Alignment is anatomic. There is no compression deformities. Vertebral body height and disc interspa elvia are maintained. Mild hypertrophic changes. Slight curvature of the spine. IMPRESSION: 1. No acute abnormality.
== END 2020-08-12 11:53 | disposition home or self-care (01) ==
LOC: EC 09:57
DX: M54.6 Pain in thoracic spine (principal); G89.11 Acute pain due to trauma; J45.909 Unspecified asthma, uncomplicated; G40.909 Epilepsy, unspecified, not intractable, without status epilepticus; F17.200 Nicotine dependence, unspecified, uncomplicated; F12.90 Cannabis use, unspecified, uncomplicated; Z87.59 Personal history of other complications of pregnancy, childbirth and the puerperium
CPT/HCPCS: 81025; 72072; 99283; 96372 ×2; J2360; J1885

== ENCOUNTER 2021-01-08 22:45 | Emergency (ER) | payer OTHER ==
[2021-01-08 23:36] VITALS: BP 126/88; PULSE 75; RESP 22; TEMP 97.5
--- NOTE | 2021-01-09 01:12 | US ---
EXAMINATION TYPE: US venous doppler duplex UE RT DATE OF EXAM: 01/09/2021 COMPARISON: NONE CLINICAL HISTORY: pain, heaviness, clotting disorder. SIDE PERFORMED: Right Right Arm: Negative for DVT IMPRESSION: Grayscale, color doppler, spectral doppler imaging performed of the deep veins of the upper extremiti es. There is normal flow, compressability and vascular waveforms.
--- NOTE | 2021-01-09 01:23 | ED ---
Upper Extremity HPI - General Chief Complaint: Extremity Injury, Upper Stated Complaint: RT arm numbness Time Seen by Provider: 01/09/21 00:31 Source: patient, RN notes reviewed Mode of arrival: ambulatory Limitations: no limitations - History of Present Illness Initial Comments: Patient is a 30-year-old female presenting to emergency Department with co mplaints of right arm pain that started about an hour or 2 prior to arrival. She denies any injuries or trauma. States she was watching TV and started feeling some pain, achiness down her right extremity. She has history of clotting disorder. Last week she also had episode of pain in her right forearm, the pain seemed to go away on its own. She talked her doctor about this and her doctor wanted her come in for evaluation. She is concerned for blood clot. She denies any fevers or chills, no redness of the arm. She denies any previous injuries. She did take ibuprofen prior to arrival, did help with the pain. No history of blood clots. She denies any shortness of breath or chest pain, no leg pain. She has no further complaints. Her vitals are stable upon arrival. - Related Data Home Medications Medication Instructions Recorded Confirmed Naproxen Sodium [Aleve] 440 mg PO BID PRN 09/18/18 09/18/18 Previous Rx's Medication Instructions Recorded Clindamycin HCl 300 mg PO Q6HR 10 Days #40 cap 04/09/19 Oseltamivir [Tamiflu] 75 mg PO Q12HR #10 cap 05/18/19 guaiFENesin-DM 600/30MG [Mucinex 2 each PO Q12HR PRN #20 tab.er.12h 05/18/19 Dm] Cyclobenzaprine [Flexeril] 10 mg PO TID #10 tab 08/12/20 Allergies Allergy/AdvReac Type Severity Reaction Status Date / Time No Known Allergies Allergy Verified 01/08/21 23:36 Review of Systems ROS Statement: Those systems with pertinent positive or pertinent negative responses have been documented in the HPI. ROS Other: All systems not noted in ROS Statement are negative. Past Medical History Past Medical History: Asthma, Blood Disorder, Seizure Disorder, Syncope Additional Past Medical History / Comment(s): HX PRE-ECLAMPSIA, gestational anemia, and MTHFR, anticardiolipin antibody. HX LOW HR, BLACKS OUT FOR MANY YEARS. CONVULSION 3 WKS AGO; LIGHTHEADED, SHAKY DAYS AFTER.bradycardia History of Any Multi-Drug Resistant Organisms: None Reported Past Surgical History: No Surgical Hx Reported Past Anesthesia/Blood Transfusion Reactions: No Reported Reaction Additional Past Anesthesia/Blood Transfusion Reaction / Comment(s): NO PREV ANESTHESIA OR TRANSFUSION Past Psychological History: ADD/ADHD, Anxiety Smoking Status: Current every day smoker Past Alcohol Use History: Occasional Past Drug Use History: Marijuana - Past Family History Mother Family Medical History: Hypertension Brother(s) Additional Family Medical History / Comment(s): BLOOD CLOT IN FOOT YEARS AGO General Exam - General Exam Comments Initial Comments: GENERAL: Patient is well-developed and well-nourished. Patient is nontoxic and in no acute distress. HEAD: Atraumatic, normocephalic. EYES: Pupils equal round and reactive to light, extraocular movements intact, sclera anicteric, conjunctiva are normal. Eyelids were unremarkable. NECK: Normal range of motion, supple without lymphadenopathy or JVD. LUNGS: Unlabored respirations. Breath sounds clear to auscultation bilaterally and eq ual. No wheezes rales or rhonchi. HEART: Regular rate and rhythm without murmurs, rubs or gallops. ABDOMEN: Soft, nontender, normoactive bowel sounds. No guarding, no rebound. No masses appreciated. MUSCULOSKELETAL: Normal extremities with adequate strength and normal range of motion, no pitting or edema. No clubbing or cyanosis. Mild tenderness to palpation of the right upper trapezius muscle. NEUROLOGICAL: Patient is alert and oriented x 3. Symmetrical smile. Normal speech, normal gait. PSYCH: Normal mood, normal affect. SKIN: Warm, Dry, normal turgor, no rashes or lesions noted. Limitations: no limitations Course Vital Signs 01/08/21 23:31 Temperature 97.5 F L Pulse Rate 75 Respiratory 22 Rate Blood Pressure 126/88 O2 Sat by Pulse 98 Oximetry Medical Decision Making - Medical Decision Making Patient is a 30-year-old female presenting with right arm pain started while she was watching TV today. She has history of clotting disorder, concern for DVT. She has normal pulses, no redness or swelling. No cough or chest pain, no leg pain. No history of DVTs. Ultrasound is negative for acute DVT of the right upper extremity. Discussed findings with the patient. This is most likely muscle tightness. Recommended continue with ibuprofen. She'll follow up with her primary. She is agreeable to this and stable for discharge. Disposition Clinical Impression: Right arm pain Disposition: HOME SELF-CARE Condition: Stable Instructions (If sedation given, give patient instructions): Arm Pain (ED) Additional Instructions: Please return to the Emergency Department if symptoms worsen or any other concerns. Ultrasound is negative for DVT of the right upper extremity. Follow-up with your primary care. Is patient prescribed a controlled substance at d/c from ED?: No Referrals: Nain Ruelas DO [Primary Care Provider] - 1-2 days Time of Disposition: 01:23
== END 2021-01-09 01:32 | disposition home or self-care (01) ==
LOC: EC 22:45
DX: M79.601 Pain in right arm (principal); R20.0 Anesthesia of skin; J45.909 Unspecified asthma, uncomplicated; G40.909 Epilepsy, unspecified, not intractable, without status epilepticus; F41.9 Anxiety disorder, unspecified; F90.9 Attention-deficit hyperactivity disorder, unspecified type; F17.200 Nicotine dependence, unspecified, uncomplicated; F12.90 Cannabis use, unspecified, uncomplicated
CPT/HCPCS: 99284

== ENCOUNTER → 2021-04-23 | Outpatient (CLI) | payer OTHER ==
[2021-04-23 14:41] LABS: Basophils # (A) 0.07 X 10*3/uL (0.00-0.10); Basophils % (A) 0.8 %; Eosinophils # (A) 0.34 X 10*3/uL (0.04-0.35); Eosinophils % (A) 3.8 %; HGB 14.8 g/dL (12.0-15.0); Lymphocytes # (A) 2.28 X 10*3/uL (0.90-5.00); Lymphocytes % (A) 25.2 %; MCHC 32.9 g/dL (32.0-37.0); MCV 91.3 fL (80.0-97.0); Mean Platelet Volume 12.7 fL (9.5-12.2); Monocytes # (A) 0.88 X 10*3/uL (0.20-1.00); Monocytes % (A) 9.7 %; Neutrophils # (A) 5.45 X 10*3/uL (1.80-7.70); Neutrophils % (A) 60.2 %; Platelet Count 177 X 10*3/uL (140-440); RBC 4.93 X 10*6/uL (4.10-5.20); RDW 12.8 % (11.5-14.5); WBC 9.05 X 10*3/uL (4.50-10.00)
== END | disposition home or self-care (01) ==
LOC: LABPAT 09:14
PROVIDERS: ATTEND Obstetrics & Gynecology Obstetrics
DX: Z01.812 Encounter for preprocedural laboratory examination (principal); N93.8 Other specified abnormal uterine and vaginal bleeding
CPT/HCPCS: 36415; 85025

== ENCOUNTER 2021-04-24 09:33 | Day surgery (SDC) | payer OTHER ==
[2021-04-18 11:27] VITALS: BMI 20.3
[~2021-04-24 09:33] MED LIST changes: +ACETAMINOPHEN IV (For NPO) 1,000 MG in EMPTY BAG 1 BAG IVPB PRN; +DEXAMETHASONE SOD PHOSPHATE 4 MG/ML 1 ML VIAL IV ONE; +LACTATED RINGERS 1,000 ML IV SCH; +ONDANSETRON 4 MG/2 ML VIAL IVP ONE; +Pre Op ABX Message 1 EACH MISC MISCELLANE ONE; -SODIUM CHLORIDE 0.9% 1,000 ML IV SCH
--- NOTE | 2021-04-24 09:39 | P.HPOB ---
History of Present Illness H&P Date: 04/24/21 Chief Complaint: Menorrhagia, family status complete This is a 30-year-old 7 para 5025 non patient that states she is done with family planning and desires permanent sterilization. In addition patient has known irregular heavy menstrual cycles. Patient has a history of seizure disorder, anticardiolipin with clotting disorder. Patient has had a ParaGard IUD placed for contraception, menstrual issues have been exacerbated by the IUD. As she is done with childbearing she is requesting endometrial ablation and tubal ligation. Review of Systems Constitutional: Denies chills, Denies fatigue, Denies fever Ears, nose, mouth and throat: Denies headache Cardiovascular: Denies leg edema Respiratory: Denies dyspnea Gastrointestinal: Denies constipation, Denies diarrhea, Denies nausea, Denies vomiting Genitourinary: Denies Past Medical History Past Medical History: Asthma, Blood Disorder, Syncope Additional Past Medical History / Comment(s): Hx Preeclampsia, Gestational Anemia. MTHFR, anticardiolipin antibody syndrome, Vasovagal Syncope with convulsions, last episode 3 yrs ago. History of Any Multi-Drug Resistant Organisms: None Reported Past Surgical History: No Surgical Hx Reported Past Anesthesia/Blood Transfusion Reactions: No Reported Reaction Additional Past Anesthesia/Blood Transfusion Reaction / Comment(s): NO PREVIOUS ANESTHESIA OR TRANSFUSION. Past Psychological History: ADD/ADHD, Anxiety Smoking Status: Current every day smoker Past Alcohol Use History: None Reported, Occasional Additional Past Alcohol Use History / Comment(s): SMOKES 1 PPD, SINCE 2003. No alcohol in 7 months. Past Drug Use History: Marijuana Additional Drug Use History / Comment(s): DAILY USE, AWARE NO USE 24 HRS PRIOR TO PROCEDURE. - Past Family History Mother Family Medical History: Hypertension Brother(s) Additional Family Medical History / Comment(s): BLOOD CLOT IN FOOT. Medications and Allergies Home Medications Medication Instructions Recorded Confirmed Type No Known Home Medications 04/18/21 04/18/21 History Allergies Allergy/AdvReac Type Severity Reaction Status Date / Time No Known Allergies Allergy Verified 04/18/21 11:00 Exam Osteopathic Statement: *. No significant issues noted on an osteopathic structural exam other than those noted in the History and Physical/Consult. 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 Vaginal mucosa is noted to be pink and well rugated, cervix is without lesion, uterus is mobile no adnexal masses are appreciated. Assessment and Plan (1) Family planning Status: Acute Code(s): Z30.09 - ENCOUNTER FOR OT GENERAL CNSL AND ADVICE ON CONTRACEPTION SNOMED Code(s): 135645749 (2) Menorrhagia Status: Acute Code(s): N92.0 - EXCESSIVE AND FREQUENT MENSTRUATION WITH REGULAR CYCLE SNOMED Code(s): 203810510 (3) Metrorrhagia Status: Acute Code(s): N92.1 - EXCESSIVE AND FREQUENT MENSTRUATION WITH IRREGULAR CYCLE SNOMED Code(s): 26450479 Plan: 30-year-old patient that presents for a practical nurse scope tubal ligation with Filshie clips, hysteroscopy, dilation curettage with endometrial ablation. Patient's counselors of surgery all questions are answered. Patient states she is done with childbearing and requests permanent sterilization with tubal ligation. Risks of surgery are reviewed with the patient including but not limited to infection, bleeding, damage to bladder, bowel. she states understanding and wishes to proceed. We will proceed with a practical nurse scope tubal ligation with Filshie clips, hysteroscopy, dilation curettage, endometrial ablation.
[2021-04-24] MEDS ORDERED: LACTATED RINGERS 1,000 ML IV ONE ×2 (10:02→10:56)
[2021-04-24] MEDS ORDERED: MIDAZOLAM 2 MG/2 ML VIAL IVP ONE (10:15)
[2021-04-24] MEDS ORDERED: PROPOFOL 10 MG/ML 20 ML VIAL IV ONE (10:27)
[2021-04-24] MEDS ORDERED: fentaNYL (PF) 50 MCG/ML 2 ML AMP ONE (10:27)
[2021-04-24] MEDS ORDERED: SUCCINYLCHOLINE CHLORIDE 100 MG/5 ML SYR IV ONE (10:27)
[2021-04-24] MEDS ORDERED: MIDAZOLAM 2 MG/2 ML VIAL ONE (10:27)
[2021-04-24] MEDS ORDERED: LIDOCAINE URO-JET JELLY 2% 5 ML KIT URETHRAL ONE (10:46)
[2021-04-24] MEDS ORDERED: BUPIVACAINE (PF) 0.25% 30 ML VIAL SQ ONE (10:58)
--- NOTE | 2021-04-24 11:19 | P.OP ---
Date of Procedure: 04/24/21 Preoperative Diagnosis: undesired fertility, menometrorrhagia Postoperative Diagnosis: same Procedure(s) Performed: Laparoscopic tubal ligation with Filshie clips, hysteroscopy, dilation and curettage, endometrial ablation with Celia Anesthesia: FELICITA Surgeon: Vicky Baugh Estimated Blood Loss (ml): 5 IV fluids (ml): 1,000 Urine output (ml): 50 Pathology: other (Endometrial curettings) Condition: stable Disposition: PACU Indications for Procedure: Family status complete, desires permanent sterilization, irregular heavy menstrual cycles, history of clotting disorder desires endometrial ablation Operative Findings: Enlarged globular uterus approximately 10 cm in length. Normal-appearing ovaries bilaterally Description of Procedure: Patient was taken back to the operating suite where general anesthesia was obtained without difficulty by the anesthesia department. She was then prepped and draped in normal sterile fashion in the dorsal lithotomy position. I Red R iver catheter was used to drain the bladder clear yellow urine. A speculum was placed the cervix was visualized and grasped with single tooth tenaculum. An acorn uterine manipulator was advanced into the cervix as a means to miniplate uterus throughout the procedure. All instruments removed from the patient's vaginal vault at this time. Attention was then turned to the patient' abdomen where in the umbilical fold a small skin incision is made. Through this incision appears needles placed. Once the Veress needle was deemed to be in the appropriate position with a drop of CO2 pressure CO2 insufflation was allowed to occur. 3 L of gas or used to obtain pneumoperitoneum. At this time the 5 mm trocar and sleeve is placed through the skin incision and toward the pneumoperitoneum. The above-noted findings are visualized. In the right lateral abdomen a 8 mm skin incision is made and an 8 mm trocar and sleeve is placed of the incision under direct visualization. The Filshie clip applicator was then used to apply a clip to the right/left fallopian tube. Complete occlusion was appreciated upon placement of the clips. Pictures were taken and all instrument were removed. Skin incisions were closed with 4-0 Vicryl in a subcu fashion. Suture strips and sterile dressings were applied. Attention was then turned the patient's vaginal vault where the acorn uterine macular was removed without difficulty. The endocervical canal was then serially dilated. The hysteroscope was then placed through the cervix and toward the endometrial cavity and intact cavity was appreciated proliferative endometrium was appreciated. A sharp curettage was then performed. The specimen was then sent to pathology for analysis. The Celia was then opened and set to the appropriate measurements for the patient's endometrial cavity length of 6. Once cavity assessment was completed the procedure was operated according to php mysql developer's instruction. One cycle was complete the device was removed without difficulty. The single-tooth tenaculum was taken off of the anterior lip of the cervix, hemostasis was appreciated. All counts were noted to be correct 2. Patient did tolerate procedure well and was taken back to the recovery room awake in stable condition.
[2021-04-24] MEDS ORDERED: MEPERIDINE 50 MG/ML SYRINGE IVP ONE ×2 (11:30→11:38)
[2021-04-24] MEDS: HYDROmorphone 0.5 MG/0.5 ML SYRINGE IVP PRN ×2 (11:46→11:57)
[2021-04-24 12:02] VITALS: RESP 16; TEMP 97
[2021-04-24] MEDS ORDERED: Acetaminophen-Codeine 300-30mg TAB ONE (12:59)
[2021-04-24] MEDS ORDERED: Acetaminophen-Codeine 300-30mg TAB PO ONE (13:01)
[2021-04-24 13:03] VITALS: BP 126/88; PULSE 49
== END 2021-04-24 13:48 | disposition home or self-care (01) ==
LOC: OR 09:33
PROVIDERS: ATTEND Obstetrics & Gynecology Obstetrics
DX: Z30.2 Encounter for sterilization (principal); N92.0 Excessive and frequent menstruation with regular cycle; J45.909 Unspecified asthma, uncomplicated; F90.9 Attention-deficit hyperactivity disorder, unspecified type; F41.9 Anxiety disorder, unspecified; F17.210 Nicotine dependence, cigarettes, uncomplicated; Z82.49 Family history of ischemic heart disease and other diseases of the circulatory system; Z86.2 Personal history of diseases of the blood and blood-forming organs and certain disorders involving the immune mechanism
CPT/HCPCS: 81025; 88305; 58671; 58563; J2250; J1100; J2175; J2405; J3010; J0131; J0330; J2704; J1170

== ENCOUNTER 2023-08-03 09:19 | Emergency (ER) | payer OTHER ==
[2023-08-03 10:14] LABS: Basophils % (A) 1 %; Eosinophils # (A) 0.3 k/uL (0-0.7); Eosinophils % (A) 3 %; HCT 43.1 % (34.0-46.0); HGB 13.8 gm/dL (11.4-16.0); Lymphocytes # (A) 2.2 k/uL (1.0-4.8); Lymphocytes % (A) 29 %; MCH 29.4 pg (25.0-35.0); MCHC 32.1 g/dL (31.0-37.0); MCV 91.7 fL (80.0-100.0); Mean Platelet Volume 9.4; Monocytes # (A) 0.4 k/uL (0-1.0); Monocytes % (A) 6 %; Neutrophils # (A) 4.7 k/uL (1.3-7.7); Neutrophils % (A) 60 %; Platelet Count 194 k/uL (150-450); RBC 4.69 m/uL (3.80-5.40); RDW 12.8 % (11.5-15.5); WBC 7.7 k/uL (3.8-10.6)
[2023-08-03 10:25] LABS: ALT 15 U/L (4-34); AST 17 U/L (14-36); African American GFR (CKD) >90 (>60 ml/min/1.73 sqM); Albumin 3.7 g/dL (3.5-5.0); Alkaline Phosphatase 45 U/L (38-126); Anion Gap 6 mmol/L; Blood Urea Nitrogen 9 mg/dL (7-17); Calcium 8.5 mg/dL (8.4-10.2); Carbon Dioxide 27 mmol/L (22-30); Chloride 106 mmol/L (98-107); Glucose 85 mg/dL (74-99); Magnesium 1.6 mg/dL (1.6-2.3); Non-African American GFR(CKD) >90 (>60 ml/min/1.73 sqM); Potassium 3.8 mmol/L (3.5-5.1); Sodium 139 mmol/L (137-145); Total Bilirubin 0.6 mg/dL (0.2-1.3); Total Protein 6.3 g/dL (6.3-8.2)
[2023-08-03 10:35] LABS: Partial Thromboplastin Time 26.1 sec (22.0-30.0); Prothrombin Time 11.3 sec (10.0-12.5)
--- NOTE | 2023-08-03 10:45 | CT ---
EXAMINATION TYPE: CT chest angio for PE DATE OF EXAM: 08/03/2023 COMPARISON: None HISTORY: pe CT DLP: 295 mGycm Automated exposure control for dose reduction was used. CONTRAST: CT Chest for pulmonary embolism performed with with IV Contrast, patient injected with 70 mL of Isovu e 370. 3-D postprocessing was performed. FINDINGS: LUNGS: The lungs are grossly clear, there is no concerning parenchymal mass or nodule identified. T here is no pleural effusion or pneumothorax seen. The tracheobronchial tree is patent. MEDIASTINUM: There is satisfactory enhancement of the pulmonary artery and its branches, there is no CT evidence for pulmonary embolism. There are no greater than 1 cm hilar or mediastinal lymph nodes. No pericardial effusion is seen. IMPRESSION: 1. No pulmonary embolism. 2. No acute cardiopulmonary disease.
--- NOTE | 2023-08-03 11:04 | ED ---
General Adult HPI - General Chief complaint: Chest Pain Stated complaint: Chest Pain Time Seen by Provider: 08/03/23 09:25 Source: patient, RN notes reviewed, old records reviewed Mode of arrival: ambulatory Limitations: no limitations - History of Present Illness Initial comments: This is a 33-year-old female who presents to the emergency department co mplaining of chest pain when she woke up this morning which is subsided. Patient states it was sharp and it went away after 10 minutes. Patient states she still has pain in her back between her shoulder blades and she did not do anything to herself so she came to the emergency department. Patient has any fever chills or cough. Patient states she does have a clotting disorder but never had any blood clots. Patient also states she has been diagnosed with bradycardia. Patient denies any recent fever or chills. Patient denies any abdominal pain patient has nausea vomiting - Related Data Home Medications Medication Instructions Recorded Confirmed No Known Home Medications 04/18/21 04/18/21 Allergies Allergy/AdvReac Type Severity Reaction Status Date / Time No Known Allergies Allergy Verified 07/01/22 22:37 Review of Systems ROS Statement: Those systems with pertinent positive or pertinent negative responses have been documented in the HPI. ROS Other: All systems not noted in ROS Statement are negative. Past Medical History Past Medical History: Asthma, Blood Disorder, Syncope Additional Past Medical History / Comment(s): Hx Preeclampsia, Gestational Anemia. MTHFR, anticardiolipin antibody syndrome, Vasovagal Syncope with convulsions, last episode 3 yrs ago. History of Any Multi-Drug Resistant Organisms: None Reported Past Surgical History: Tubal Ligation, Uterine Ablation Past Anesthesia/Blood Transfusion Reactions: No Reported Reaction Additional Past Anesthesia/Blood Transfusion Reaction / Comment(s): NO PREVIOUS ANESTHESIA OR TRANSFUSION. Past Psychological History: ADD/ADHD, Anxiety Smoking Status: Current every day smoker Past Alcohol Use History: Occasional Past Drug Use History: Marijuana - Past Family History Mother Family Medical History: Hypertension Brother(s) Additional Family Medical History / Comment(s): BLOOD CLOT IN FOOT. General Exam - General Exam Comments Initial Comments: GENERAL: Patient is well-developed and well-nourished. Patient is nontoxic and well- hydrated and is in mild distress. ENT: Neck is soft and supple. No significant lymphadenopathy is noted. Oropharynx is clear. Moist mucous membranes. Neck has full range of motion without eliciting any pain. EYES: The sclera were anicteric and conjunctiva were pink and moist. Extraocular movements were intact and pupils were equal round and reactive to light. Eyelids were unremarkable. PULMONARY: Unlabored respirations. Good breath sounds bilaterally. No audible rales rhonchi or wheezing was noted. CARDIOVASCULAR: There is a regular rate and rhythm without any murmurs gallops or rubs. ABDOMEN: Soft and nontender with normal bowel sounds. SKIN: Skin is clear with no lesions or rashes and otherwise unremarkable. NEUROLOGIC: Patient is alert and oriented x3. Cranial nerves II through XII are grossly intact. Motor and sensory are also intact. Normal speech, volume and content. Symmetrical smile. MUSCULOSKELETAL: Normal extremities with adequate strength and full range of motion. LYMPHATICS: No significant lymphadenopathy is noted PSYCHIATRIC: Normal psychiatric evaluation. Limitations: no limitations Course Vital Signs 08/03/23 09:19 Temperature 97.8 F Pulse Rate 83 Respiratory 16 Rate Blood Pressure 141/88 O2 Sat by Pulse 98 Oximetry Medical Decision Making - Medical Decision Making EKG is interpreted by nv EKG shows a sinus rhythm at 74 bpm parables 154 QRS is 94 QT interval 370 QTc is 397. Patient's EKG shows no ST segment ovation or depression. Was pt. sent in by a medical professional or institution (, PA, CHECKOUT OPERATOR, urgent care, hospital, or senior living...) When possible be specific @ -No Did you speak to anyone other than the patient for history (EMS, parent, family, police, friend...)? What history was obtained from this source @ -No Did you review nursing and triage notes (agree or disagree)? Why? @ -I reviewed and agree with nursing and triage notes Were old charts reviewed (outside hosp., previous admission, EMS record, old EKG, old radiological studies, urgent care reports/EKG's, senior living records)? Report findings @ -No old charts were reviewed Differential Diagnosis (chest pain, altered mental status, abdominal pain women, abdominal pain men, vaginal bleeding, weakness, fever, dyspnea, syncope, headache, dizziness, GI bleed, back pain, seizure, CVA, palpatations, mental health, musculoskeletal)? @ -Differential Chest Pain: Stable Angina, Unstable Angina, STEMI, NSTEMI Aortic Dissection, Pneumothorax, Musculoskeletal, Esophageal Spasm GERD, Cholecystitis, Pancreatitis, Zoster, this is not meant to be an all-inclusive list. EKG interpreted by me (3pts min.). @ -As above X-rays interpreted by me (1pt min.). @ -None done CT interpreted by me (1pt min.). @ -CT of the chest showed no pulmonary embolism no aortic dissection and no lung abnormalities U/S interpreted by me (1pt. min.). @ -None done What testing was considered but not performed or refused? (CT, X-rays, U/S, labs)? Why? @ -None What meds were considered but not given or refused? Why? @ -None Did you discuss the management of the patient with other professionals (professionals i.e. , PA, CHECKOUT OPERATOR, lab, RT, psych nurse, social services technician, bioinformatician, teacher, motor equipment commanding officer, pillowcase sewer)? Give summary @ -No Was smoking cessation discussed for >3mins.? @ -No Was critical care preformed (if so, how long)? @ -No Were there social determinants of health that impacted care today? How? (Homelessness, low income, unemployed, alcoholism, drug addiction, transportation, low edu. Level, literacy, decrease access to med. care, [facility], rehab)? @ -No Was there de-escalation of care discussed even if they declined (Discuss DNR or withdrawal of care, Hospice)? DNR status @ -No What co-morbidities impacted this encounter? (DM, HTN, Smoking, COPD, CAD, Cancer, CVA, ARF, Chemo, Hep., AIDS, mental health diagnosis, sleep apnea, morbid obesity)? @ -None Was patient admitted / discharged? Hospital course, mention meds given and route, prescriptions, significant lab abnormalities, going to OR and other pertinent info. @ -Patient was sleeping when I went back in the room to give her the results of her tests. Patient's lab work was all normal as was a CT of her chest. Patient is having only minimal back pain at this time and no chest pain. Patient will be discharged home Undiagnosed new problem with uncertain prognosis? @ -No Drug Therapy requiring intensive monitoring for toxicity (Heparin, Nitro, Insulin, Cardizem)? @ -No Were any procedures done? @ -No Diagnosis/symptom? @ -Chest pain Acute, or Chronic, or Acute on Chronic? @ -Acute Uncomplicated (without systemic symptoms) or Complicated (systemic symptoms)? @ -Complicated Side effects of treatment? @ -No Exacerbation, Progression, or Severe Exacerbation? @ -No Poses a threat to life or bodily function? How? (Chest pain, [place], [place], pneumonia, PE, COPD, DKA, ARF, appy, cholecystitis, CVA, Diverticulitis, Homicidal, Suicidal, threat to staff... and all critical care pts) @ -No Diagnosis/symptom? @ -Back pain Acute, or Chronic, or Acute on Chronic? @ -Acute Uncomplicated (without systemic symptoms) or Complicated (systemic symptoms)? @ -Uncomplicated Side effects of treatment? @ -None Exacerbation, Progression, or Severe Exacerbation] @ -No Poses a threat to life or bodily function? @ -No - Lab Data Result diagrams: 08/03/23 10:00 08/03/23 10:00 Lab Results 08/03/23 08/03/23 08/03/23 Range/Units 10:00 10:00 10:00 WBC 7.7 (3.8-10.6) k/uL RBC 4.69 (3.80-5.40) m/uL Hgb 13.8 (11.4-16.0) gm/dL Hct 43.1 (34.0-46.0) % MCV 91.7 (80.0-100.0) fL MCH 29.4 (25.0-35.0) pg MCHC 32.1 (31.0-37.0) g/dL RDW 12.8 (11.5-15.5) % Plt Count 194 (150-450) k/uL MPV 9.4 Neutrophils % 60 % Lymphocytes % 29 % Monocytes % 6 % Eosinophils % 3 % Basophils % 1 % Neutrophils # 4.7 (1.3-7.7) k/uL Lymphocytes # 2.2 (1.0-4.8) k/uL Monocytes # 0.4 (0-1.0) k/uL Eosinophils # 0.3 (0-0.7) k/uL Basophils # 0.0 (0-0.2) k/uL PT 11.3 (10.0-12.5) sec INR 1.0 (<1.2) APTT 26.1 (22.0-30.0) sec D-Dimer <0.17 (<0.60) mg/L FEU Sodium 139 (137-145) mmol/L Potassium 3.8 (3.5-5.1) mmol/L Chloride 106 (98-107) mmol/L Carbon Dioxide 27 (22-30) mmol/L Anion Gap 6 mmol/L BUN 9 (7-17) mg/dL Creatinine 0.71 (0.52-1.04) mg/dL Est GFR (CKD-EPI)AfAm >90 (>60 ml/min/1.73 sqM) Est GFR (CKD-EPI)NonAf >90 (>60 ml/min/1.73 sqM) Glucose 85 (74-99) mg/dL Calcium 8.5 (8.4-10.2) mg/dL Magnesium 1.6 (1.6-2.3) mg/dL Total Bilirubin 0.6 (0.2-1.3) mg/dL AST 17 (14-36) U/L ALT 15 (4-34) U/L Alkaline Phosphatase 45 (38-126) U/L Troponin I (0.000-0.034) ng/mL Total Protein 6.3 (6.3-8.2) g/dL Albumin 3.7 (3.5-5.0) g/dL /08/21 Range/Units 10:00 WBC (3.8-10.6) k/uL RBC (3.80-5.40) m/uL Hgb (11.4-16.0) gm/dL Hct (34.0-46.0) % MCV (80.0-100.0) fL MCH (25.0-35.0) pg MCHC (31.0-37.0) g/dL RDW (11.5-15.5) % Plt Count (150-450) k/uL MPV Neutrophils % % Lymphocytes % % Monocytes % % Eosinophils % % Basophils % % Neutrophils # (1.3-7.7) k/uL Lymphocytes # (1.0-4.8) k/uL Monocytes # (0-1.0) k/uL Eosinophils # (0-0.7) k/uL Basophils # (0-0.2) k/uL PT (10.0-12.5) sec INR (<1.2) APTT (22.0-30.0) sec D-Dimer (<0.60) mg/L FEU Sodium (137-145) mmol/L Potassium (3.5-5.1) mmol/L Chloride (98-107) mmol/L Carbon Dioxide (22-30) mmol/L Anion Gap mmol/L BUN (7-17) mg/dL Creatinine (0.52-1.04) mg/dL Est GFR (CKD-EPI)AfAm (>60 ml/min/1.73 sqM) Est GFR (CKD-EPI)NonAf (>60 ml/min/1.73 sqM) Glucose (74-99) mg/dL Calcium (8.4-10.2) mg/dL Magnesium (1.6-2.3) mg/dL Total Bilirubin (0.2-1.3) mg/dL AST (14-36) U/L ALT (4-34) U/L Alkaline Phosphatase (38-126) U/L Troponin I <0.012 (0.000-0.034) ng/mL Total Protein (6.3-8.2) g/dL Albumin (3.5-5.0) g/dL Disposition Clinical Impression: Chest pain, Back pain Disposition: HOME SELF-CARE Condition: Good Instructions (If sedation given, give patient instructions): Chest Pain (ED), Back Pain (ED) Is patient prescribed a controlled substance at d/c from ED?: No Referrals: Nain Ruelas DO [Primary Care Provider] - 1-2 days Time of Disposition: 11:24
[2023-08-03 13:04] VITALS: BP 118/83; PULSE 50; RESP 18; TEMP 98
== END 2023-08-03 12:57 | disposition home or self-care (01) ==
LOC: EC 09:19
DX: M54.9 Dorsalgia, unspecified (principal); R07.9 Chest pain, unspecified; F17.200 Nicotine dependence, unspecified, uncomplicated; F12.90 Cannabis use, unspecified, uncomplicated
CPT/HCPCS: 36415; 93005; 85379; 80053; 83735; 84484; 85025; 85610; 85730; 71275; 99285; Q9967